=== PATIENT | female | born 1970 | race Caucasian/White ===

== ENCOUNTER 2017-04-30 02:16 | Emergency (ER) | payer OTHER ==
[2017-04-30 04:13] LABS: BILIRUBIN,URINE NEGATIVE (NEGATIVE)
[2017-04-30 04:14] LABS: UA CHARGE (STRIP ONLY) YES; UR CULTURE IF IND NOT INDICATED
[2017-04-30 04:15] LABS: HCG UR QUAL NEGATIVE
[2017-04-30 04:38] LABS: BASOPHILS # (AUTO) 0.1 10^3/uL (0.0-0.1); BASOPHILS % (AUTO) 0.7 %; EOSINOPHILS # (AUTO) 0.2 10^3/uL (0.0-0.7); EOSINOPHILS % (AUTO) 1.7 %; HGB - HEMOGLOBIN 13.1 g/dL (12.0-16.0); LYMPHOCYTES # (AUTO) 2.6 10^3/uL (1.5-3.5); LYMPHOCYTES % (AUTO) 19.9 %; MEAN CORPUSCULAR HEMOGLOBIN 29.5 pg (27.0-31.0); MEAN CORPUSCULAR HGB CONC 33.6 g/dL (32.0-36.0); MEAN CORPUSCULAR VOLUME 87.7 fL (81.0-99.0); MEAN PLATELET VOLUME 8.5 fL (7.9-10.8); MONOCYTES # (AUTO) 0.6 10^3/uL (0.0-1.0); MONOCYTES % (AUTO) 4.2 %; NEUTROPHILS # (AUTO) 9.6 10^3/uL (1.5-6.6); NEUTROPHILS % (AUTO) 73.5 %; RED BLOOD COUNT 4.45 10^6/uL (4.20-5.40); RED CELL DISTRIBUTION WIDTH 13.1 % (12.0-15.0); UNCORRECTED WHITE BLOOD COUNT 13.1 x10^3/uL; WHITE BLOOD COUNT 13.1 x10^3/uL (4.8-10.8)
[2017-04-30 04:48] LABS: ALBUMIN/GLOBULIN RATIO 1.1 (1.0-2.2); BILIRUBIN,TOTAL 0.5 mg/dL (0.2-1.0); CALCIUM 9.9 mg/dL (8.5-10.3); CREATININE 0.8 mg/dL (0.4-1.0); POTASSIUM 4.1 mmol/L (3.5-5.0); TOTAL PROTEIN 7.5 g/dL (6.7-8.2)
--- NOTE | 2017-04-30 05:03 | ED Physician Documentation ---
PD HPI CHEST PAIN - Stated complaint Stated Complaint: HIGH BLOOD PRESSURE - Chief complaint Chief Complaint: General - History obtained from History obtained from: Patient - History of Present Illness Timing - onset: Enter time (99), Today Timing - onset during: Sleep Timing - duration: Hours Timing - details: Gradual onset, Still present, Waxing and waning Quality: Pressure Location: Substernal, Left chest Radiation: No: Jaw, Neck, Back, Abdominal, Left upper extremity, Right upper extremity Improved by: Nothing Worsened by: Other (nothing) Associated symptoms: No: Shortness of air, Diaphoresis, Nausea, Vomiting, Feeling faint / dizzy, General Weakness, Palpitations, Cough Similar symptoms before: Diagnosis (panic attack) Recently seen: Other (The patient has a sleep study scheduled for this week.) - Additional information Additional information: 47 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 She is under a fair amount of stress as she has sold her house, opened a new practice, drained her savings, and purchased a live aboard boat for her and her all within the past 6 months. Her has left to go to his brothers wedding and she is alone this weekend in a 17 foot trailer with no cell phone coverage where the couple have been living while awaiting their live aboard boat. She has had an episode of chest pressure this morning starting at 1am and now resolved. She denies radiation of the pressure, diaphoresis, nausea or numbness to the jaw or arm. She has had these episodes frequently and she believes if her had been home she likely would not have needed to come in this morning. Review of Systems Constitutional: denies: Fever, Chills, Myalgias, Fatigue, Sweats Eyes: denies: Decreased vision Ears: denies: Ear pain Nose: denies: Congestion Throat: denies: Sore throat Cardiac: reports: Chest pain / pressure. 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 - Present Medications Home Medications: Ambulatory Orders Medication Instructions Recorded Confirmed Lisinopril 20 mg PO .FREQ 04/30/17 04/30/17 raNITIdine [Zantac] 150 mg PO DAILY 04/30/17 04/30/17 - Allergies Allergies/Adverse Reactions: Allergies Allergy/AdvReac Type Severity Reaction Status Date / Time iodine Allergy Anxiety Verified 04/30/17 02:23 - Social History Does the pt smoke?: No Smoking Status: Former smoker Does the pt drink ETOH?: No Does the pt have substance abuse?: No - Immunizations Immunizations are current?: Yes PD ED PE NORMAL - Vitals Vital signs reviewed: Yes (hypesrtension ) - General General: Alert and oriented X 3, No acute distress, Well developed/nourished, Other ( a pleasant 47 y/o female in no distress. ) - HEENT HEENT: Atraumatic, PERRL, EOMI - Neck Neck: Supple, no meningeal sign - Cardiac Cardiac: RRR, No murmur - Respiratory Respiratory: No respiratory distress, Clear bilaterally - Abdomen Abdomen: Normal bowel sounds, Soft, Non tender, Non distended, No organomegaly - Back Back: No CVA TTP, No spinal TTP - Derm Derm: Normal color, Warm and dry, No rash - Extremities Extremities: No deformity, No edema - Neuro Neuro: Alert and oriented X 3, otm consultant 2-12 intact, No motor deficit, No sensory deficit, Normal speech - Psych Psych: Normal mood, Normal affect Results - Vitals Vitals: Vital Signs - 24 hr 04/30/17 04/30/17 02:18 04:32 Temperature 36.1 C L 36.8 C Heart Rate 79 72 Respiratory 16 12 Rate Blood Pressure 175/110 H 151/99 H O2 Saturation 97 96 Oxygen O2 Source Room air - EKG (time done) 0241 Rate: Rate (enter#) (72) Intervals: Other (short MT ) Ischemia: ST depression (V3) Compare to prior EKG: Old EKG unavailable Computer interpretation: Disagree with computer (I do not see ST depression except for lead V3) - Labs Labs: Laboratory Tests 04/30/17 04/30/17 04/30/17 03:40 04:16 04:16 WBC 13.1 H RBC 4.45 Hgb 13.1 Hct 39.0 MCV 87.7 MCH 29.5 MCHC 33.6 RDW 13.1 Plt Count 293 MPV 8.5 Neut # 9.6 H Lymph # 2.6 [place] # 0.6 Eos # 0.2 Baso # 0.1 Absolute Nucleated RBC 0.00 Nucleated RBCs 0.0 Sodium 139 Potassium 4.1 Chloride 104 Carbon Dioxide 25 Anion Gap 10.0 BUN 14 Creatinine 0.8 Estimated GFR (MDRD) 77 L Glucose 145 H Calcium 9.9 Total Bilirubin 0.5 AST 16 ALT 25 Alkaline Phosphatase 71 Total Protein 7.5 Albumin 4.0 Globulin 3.5 Albumin/Globulin Ratio 1.1 Lipase 17 L Urine Color YELLOW Urine Clarity CLEAR Urine pH 6.0 Ur Specific [place] <=1.005 Urine Protein NEGATIVE Urine Glucose (UA) NEGATIVE Urine Ketones NEGATIVE Urine Occult Blood NEGATIVE Urine Nitrite NEGATIVE Urine Bilirubin NEGATIVE Urine Urobilinogen 0.2 (NORMAL) Ur Leukocyte Esterase NEGATIVE Ur Microscopic Review NOT INDICATED Urine Culture Comments NOT INDICATED Urine HCG, Qual NEGATIVE - Rads (name of study) 2 view chest Radiology: Prelim report reviewed (Impression: Normal two-view chest radiography.), EMP read indepedently, See rad report Procedures - Bedside sono Bedside sono by EMP: exam of the gallbladder with the bedside ultrasound shows a contracted non- tender gallbladder without obvious stone. - IVC sono (time) 0429 Bedside IVC sono: IVC measures (cm) (1.22), Dehydration (mild) PD MEDICAL DECISION MAKING - ED course Complexity details: reviewed results, re-evaluated patient, considered differential, d/w patient ED course: 47 y/o female with chest pressure and panic has htn on arrival, no ST elevation and negative trop more than 2 hours after the onset of pain. She indicates a history of panic attack with these symptoms and she certainly has a lot on her plate. I do not suspect [place] or angina, she could have gallbladder disease but has a grossly normal appearing gallbladder. She has follow up this week for a sleep study and her should be returning home. Departure - Departure Disposition: 01 Home, Self Care Clinical Impression: Stress reaction Hypertension Qualifiers: Hypertension type: other secondary hypertension Qualified Code(s): I15.8 - Other secondary hypertension Condition: Stable Instructions: ED Stress React, ED Hypertension Poss Follow-Up: MELLO [place] [Physician No Access] - Comments: Your symptoms are consistent with gallbladder disease. We did not do a formal ultrasound of the gallbladder. The bedside exam was unremarkable with a contracted gallbladder, non-tender and without obvious stone. Further investigation of the gallbladder may be helpful. Today in the Emergency Department your blood pressure was elevated. This can happen from the stress of the visit itself, from a current illness or circumstance or from uncontrolled hypertension. If you take blood pressure medications take your usual mediations, have your blood pressure re-checked in an appropriate setting and follow up any elevation with your primary care doctor.
--- NOTE | 2017-04-30 05:05 | XRAY Preliminary Report ---
Exam: XR Chest 2 View PA/LAT IMPRESSION: Normal 2-view chest radiography. [facility] SITE ID: [id number]
--- NOTE | 2017-04-30 05:07 | XRAY Report ---
EXAM: CHEST RADIOGRAPHY EXAM DATE: 04/30/2017 04:55 AM. CLINICAL HISTORY: Chest pressure. . COMPARISON: None. TECHNIQUE: 2 views. FINDINGS: Lungs/Pleura: No focal opacities evident. No pleural effusion. No pneumothorax. Normal volumes. Mediastinum: Heart and mediastinal contours are unremarkable. Other: None. IMPRESSION: Normal 2-view chest radiography. [facility] Referring Provider Line: [phone] SITE ID: [id number]
[2017-04-30 05:44] VITALS: BP 144/94
== END 2017-04-30 05:44 | disposition home or self-care (01) ==
LOC: ED 02:16
DX: F43.9 Reaction to severe stress, unspecified (principal); I15.8 Other secondary hypertension; Z87.891 Personal history of nicotine dependence
CPT/HCPCS: 36415; 71020; 80053; 81001; 81003; 81025; 83690; 84484; 85025; 87086; 93005; 93010; 99283; 99284